=== PATIENT | male | born 1990 | race Hispanic/Latino ===

== ENCOUNTER 2020-04-29 18:55 | Emergency (ER) | payer SELFPAY ==
[2020-04-29 19:36] LABS: Bilirubin Negative (Negative); Blood, Urine Negative (Negative); Clarity Clear (Clear); Glucose, Urine (Dipstick) Negative (Negative); Ketone, Urine Negative (Negative); Leukocyte Negative (Negative); Nitrite Negative (Negative); Protein, Urine (Dipstick) Negative (Neg-Trace); Urobilinogen 0.2 mg/dL (Less than 2)
--- NOTE | 2020-04-29 19:41 | CT ---
CT HEAD WITHOUT IV CONTRAST COMPARISON: None HISTORY: Headache. TECHNIQUE: Axial CT imaging at 5 mm intervals from vertex through skull base without contrast FINDINGS: There is no evidence of an acute infarction, hemorrhage, mass effect, or midline shift. The ventricul ar system is normal in size, shape, and position. There is opacification of ethmoidal air cells bilaterally greater on the right. Mastoid air cells are clear. Osseous structures appear intact. IMPRESSION: 1. No acute intracranial abnormality demonstrated. 2. Sinus disease.
[2020-04-29 19:47] LABS: #Basophils 0.1 thou/uL (0.0-0.2); #Eosinphils 0.3 thou/uL (0.0-0.7); #Lymphocytes 3.1 thou/uL (1.20-3.40); #Monocytes 1.2 thou/uL (0.11-0.59); #Neutrophils 9.1 thou/uL (1.40-6.50); %Basophils 0.6 % (0.0-1.0); %Eosinophils 1.9 % (0.0-10.0); %Lymphocytes 22.5 % (21.0-51.0); %Monocytes 8.4 % (0.0-10.0); %Neutrophils 66.5 % (42.0-75.0); Hemoglobin 16.4 g/dL (14.0-18.0); Mean Corpuscular HGB CONC 32.1 g/dL (32.0-36.0); Mean Corpuscular Hemoglobin 27.6 pg (27.0-31.0); Mean Corpuscular Volume 85.9 fL (78.0-98.0); Mean Platelet Volume 9.5 fL (7.4-10.4); Platelet Count 220 thou/uL (130-400); RBC Distribution Width 11.3 % (11.5-14.5); Red Blood Cell (RBC) Count 5.96 mill/uL (4.70-6.10); White Blood Cell (WBC) Count 13.6 thou/uL (4.8-10.8)
[2020-04-29 20:07] LABS: ALT (SGPT) 21 U/L (8-55); AST (SGOT) 12 U/L (5-34); Albumin 4.7 g/dL (3.5-5.0); Alkaline Phosphatase 60 U/L (40-110); Anion Gap 16 mmol/L (10-20); BUN (Urea Nitrogen) 10 mg/dL (8.9-20.6); Bilirubin, Total Less than 0.2 mg/dL (0.2-1.2); CK (CPK) 328 U/L (30-200); Calc. Creatinine Clearance 0 mL/min (70-130); Calcium 9.2 mg/dL (7.8-10.44); Carbon Dioxide 23 mmol/L (22-29); Chloride 106 mmol/L (98-107); Estimated GFR-MDRD Greater than 90; Globulin 3.1 g/dL (2.4-3.5); Glucose 102 mg/dL (70-105); Potassium 3.8 mmol/L (3.5-5.1); Protein, Total 7.8 g/dL (6.0-8.3); Sodium 141 mmol/L (136-145)
[2020-04-29 20:12] LABS: Amphetamine Not Detected (NotDetected); Barbiturates Screen Not Detected (NotDetected); Benzodiazepine Screen Not Detected (NotDetected); Cocaine Metabolite Screen Not Detected (NotDetected); Medtox Control Line Valid? VALID (VALID); Methadone Not Detected (NotDetected); Methamphetamine Not Detected (NotDetected); Opiate Screen Not Detected (NotDetected); Oxycodone Screen Not Detected (NotDetected); Phencyclidine (PCP) Not Detected (NotDetected); THC/Cannabinoid Screen Not Detected (NotDetected); Tricyclic Screen Not Detected (NotDetected)
[2020-04-29] MEDS ORDERED: Dexamethasone 10 MG/ML VIAL ONE (20:32)
[2020-04-29] MEDS ORDERED: Morphine 10 MG/ML VIAL ONE (20:32)
[2020-04-29] MEDS ORDERED: Sodium Chloride 0.9% 1,000 ML ONE ×2 (20:32→22:49)
[2020-04-29] MEDS ORDERED: cefTRIAXone\\ROCEPHIN 2 GM VIAL ONE (20:32)
[2020-04-29] MEDS ORDERED: Sodium Chloride 0.9% 100 ML ONE (20:33)
[2020-04-29] MEDS ORDERED: Sodium Chloride 0.9% 250 ML 250 ML ONE (21:08)
[2020-04-29] MEDS ORDERED: Vancomycin HCl 750 MG VIAL ONE (21:08)
[2020-04-29] MEDS ORDERED: Vancomycin HCl 500 MG VIAL ONE (21:08)
[2020-04-29 22:32] LABS: CSF RBC Count - Manual 224 /cu.mm (None Seen); CSF Source CSF; CSF WBC/NonHematics Count-Man 1 /cu.mm (0-5); Clarity Clear (Clear); Tube # 2
[2020-04-29] MEDS ORDERED: Ketorolac Tromethamine 30 MG/ML VIAL ONE (22:49)
[2020-04-29] MEDS ORDERED: Ondansetron PF 4 MG/2 ML Vial ONE (22:49)
== END 2020-04-30 00:10 | disposition home or self-care (01) ==
LOC: MADERS 18:55
DX: M62.838 Other muscle spasm (principal); R51 Headache; E86.0 Dehydration; R50.9 Fever, unspecified; F17.210 Nicotine dependence, cigarettes, uncomplicated
CPT/HCPCS: 36415; 62270; 70450; 80053; 80306; 81003; 82550; 82945; 84157; 85025; 86140; 87040; 87070; 87086; 87205; 89051; 96361; 96365; 96366; 96367; 96375; J0696; J1100; J1885; J2270; J2405; J3370; J3490; J7050

== ENCOUNTER 2020-05-04 23:17 | Emergency (ER) | payer SELFPAY ==
[~2020-05-04 23:17] MED LIST: Iopamidol 370 76% 125 ML VIAL FS ONE; Sodium Chloride 0.9% 100 ML BAG ONE
[2020-05-05 00:13] LABS: #Basophils 0.1 thou/uL (0.0-0.2); #Eosinphils 0.4 thou/uL (0.0-0.7); #Lymphocytes 2.6 thou/uL (1.20-3.40); #Monocytes 0.7 thou/uL (0.11-0.59); #Neutrophils 3.7 thou/uL (1.40-6.50); %Basophils 1.3 % (0.0-1.0); %Eosinophils 4.8 % (0.0-10.0); %Monocytes 9.6 % (0.0-10.0); %Neutrophils 49.4 % (42.0-75.0); Hemoglobin 16.2 g/dL (14.0-18.0); Mean Corpuscular HGB CONC 31.3 g/dL (32.0-36.0); Mean Corpuscular Volume 86.1 fL (78.0-98.0); Mean Platelet Volume 8.6 fL (7.4-10.4); Platelet Count 235 thou/uL (130-400); RBC Distribution Width 11.2 % (11.5-14.5); Red Blood Cell (RBC) Count 6.02 mill/uL (4.70-6.10); White Blood Cell (WBC) Count 7.5 thou/uL (4.8-10.8)
[2020-05-05 00:31] LABS: ALT (SGPT) 23 U/L (8-55); AST (SGOT) 12 U/L (5-34); Albumin 4.4 g/dL (3.5-5.0); Alkaline Phosphatase 54 U/L (40-110); Anion Gap 15 mmol/L (10-20); BUN (Urea Nitrogen) 12 mg/dL (8.9-20.6); Bilirubin, Total 0.2 mg/dL (0.2-1.2); CK (CPK) 195 U/L (30-200); CRP (Inflammatory) Less than 0.50 mg/dL (= or < 0.5); Calc. Creatinine Clearance 0 mL/min (70-130); Calcium 9.4 mg/dL (7.8-10.44); Carbon Dioxide 28 mmol/L (22-29); Chloride 102 mmol/L (98-107); Estimated GFR-MDRD 69; Globulin 2.9 g/dL (2.4-3.5); Glucose 105 mg/dL (70-105); Potassium 4.4 mmol/L (3.5-5.1); Protein, Total 7.3 g/dL (6.0-8.3); Sodium 141 mmol/L (136-145)
[2020-05-05] MEDS ORDERED: Ondansetron PF 4 MG/2 ML Vial ONE (01:04)
[2020-05-05] MEDS ORDERED: Ketorolac Tromethamine 30 MG/ML VIAL ONE (01:04)
[2020-05-05] MEDS ORDERED: Cyclobenzaprine 10 MG TAB ONE (01:04)
[2020-05-05] MEDS ORDERED: Dextrose 5 % And 0.9 % NaCl 1,000 ML ONE (01:55)
[2020-05-05] MEDS ORDERED: Dexamethasone 10 MG/ML VIAL ONE (01:56)
[2020-05-05] MEDS ORDERED: SUMAtriptan Succinate 6 MG/0.5 ML VIAL ONE (01:57)
[2020-05-05] MEDS ORDERED: HYDROcodone/Acetaminophen 10/325 mg Tablet ONE (03:49)
--- NOTE | 2020-05-05 08:04 | CT ---
PRELIMINARY REPORT/[facility]/EMERGENCY AFTER HOURS PROCEDURE: EXAMINATION CTA Head With Intravenous Contrast HISTORY HEADACHES CAME IN LAST WEEK SAME PROBLEM. HEADACHES WILL NOT LET UP TECHNIQUE Axial CTA images of the head with intravenous contrast. MIP reconstructed images were created and rev iewed. CONTRAST With; ISOVUE 100 ML COMPARISON None provided. FINDINGS: INTERNAL CAROTID ARTERIES The intracranial ICAs are patent with no significant stenosis. No occlusion. No aneurysm. ANTERIOR CEREBRAL ARTERIES No significant stenosis. No occlusion. No aneurysm. MIDDLE CEREBRAL ARTERIES No significant stenosis. No occlusion. No aneurysm. POSTERIOR CEREBRAL ARTERIES No significant stenosis. No occlusion. No aneurysm. BASILAR ARTERY No significant stenosis. No occlusion. No aneurysm. VERTEBRAL ARTERIES No significant stenosis. No occlusion. No aneurysm. SOFT TISSUES: No acute finding. No masses or lymphadenopathy. No acute intracranial hemorrhage. No mass, mass-effect or midline shift. The ventricles are normal in size. No enhancing lesions. BONES: No acute osseous abnormality. Bilateral ethmoid sinus opacification. IMPRESSION: 1. Bilateral ethmoid sinus disease. 2. No acute intracranial findings. 3. Unremarkable CTA of the head. ELECTRONICALLY SIGNED BY: Eliceo Chau M.D. May 05, 2020 3:18:26 AM CDT This report is intended for review by the ordering physician only, in accordance of law. If you recei ve this report in error, please call [facility] at [phone]. FINAL REPORT EMERGENCY AFTER HOURS HEAD CT WITH 3D RENDERING 0223 hours 05/05/2020 IMPRESSION: No evidence for aneurysm or major branch occlusion. This report is in agreement with preliminary report by [facility]. POS: [facility]
== END 2020-05-05 03:57 | disposition home or self-care (01) ==
LOC: MADERS 23:17
DX: R51 Headache (principal)
CPT/HCPCS: 70496; 80053; 82550; 85025; 86140; 96361; 96372; 96374; 96375; J1100; J1885; J2405; J3030; J3490; J7042; Q9967